=== PATIENT | female | born 1980 | race Caucasian/White ===

== ENCOUNTER 2024-07-13 11:04 | Emergency (ER) | payer OTHER, SELFPAY ==
[2024-07-13 11:10] VITALS: BP 128/86; PULSE 108; TEMP 37.3; O2SAT 100; BMI 21.2
[2024-07-13 11:23] VITALS: RESP 16
--- NOTE | 2024-07-13 11:33 | ED_ITS ---
HPI - General Adult General Time Seen by Provider: 11:34 Date Seen: 07/13/24 Chief complaint: Unspecified Complaint, Adult Stated complaint: Shoulder and hip pain, Dx w/ pnemonia Time Seen by Provider: 07/13/24 11:18 Source: patient and RN notes reviewed Mode of arrival: ambulatory Limitations: no limitations History of Present Illness HPI narrative: This 44-year-old female is coming in with significant hip pains, some shoulder pains in the setting of pneumonia. She was diagnosed by chest x-ray with a left sided pneumonia in [facility] last week. She was coughing and having fevers for about a week prior to that. She picked up her medicines on , completed a 5 day course of prednisone yesterday, is on Augmentin for the pneumonia. She is still coughing. Her temps have been in the 99 range. She started having significant bilateral hip pain yesterday, tried a warm bath. Nothing was helping, hurt to even lift or move her legs, hurt to lay on the hips. Last night she was having bilateral shoulder pain, similar symptoms, movement hurt, lying on the bed hurt the joints. Her shoulders are not as bad as her hips today. She had a leftover Tylenol No. 3 from LASIK eye surgery last summer. She states she was only able to sleep while that took affect, as soon as it wore off she was up again. She is otherwise healthy, not on any immune modulating medications. She is not aware of any concerning family history. She had no travel, no known ill contacts. She states that there is no chance for . Related Data Home Medications ?Medication ?Instructions ?Recorded ?Confirmed dexmethylphenidate 20 mg 20 mg PO DAILY 07/13/24 07/13/24 capsule,extended release -41 eletriptan 40 mg tablet 40 mg PO BID PRN migraine 07/13/24 07/13/24 norethindrone (contraceptive) 0.35 mg PO 07/13/24 mg tablet topiramate 100 mg tablet 100 mg PO QPM 07/13/24 07/13/24 Previous Rx's ?Medication ?Instructions ?Recorded azithromycin 250 mg tablet See Rx Instructions PO .COMPLEX #6 07/13/24 tabs ketorolac 10 mg tablet 10 mg PO Q6H PRN pain #20 tabs 07/13/24 oxycodone 5 mg tablet 5 mg PO QHS PRN pain #7 tabs 07/13/24 Allergies Allergy/AdvReac Type Severity Reaction Status Date / Time No Known Drug Allergies Allergy Verified 07/13/24 11:14 Review of Systems Status of ROS: Reports: 6 or more systems reviewed and unremarkable except as noted in History and below PFSH PFSH Social History Smoking Status: Never smoker How often do you have a drink containing alcohol: monthly or less How often do you have six or more drinks on one occasion: Never AUDIT-C Alcohol total score: 1 Non-prescribed substance use: denies use Exam Const: Vital Signs, click to edit/add: Vital Signs - 24 hr 07/13/24 11:10 07/13/24 11:23 07/13/24 12:15 Temperature 99.2 F Pulse Rate [Pulse Oximeter] 108 H Respiratory Rate 16 Blood Pressure [Ri ght Upper Arm] 128/86 Pulse Oximetry 100 99 Oxygen Delivery Me thod Room Air 07/13/24 12:25 07/13/24 12:25 07/13/24 13:00 Temperature 98.5 F Pulse Rate [Pulse Oximeter] 91 Respiratory Rate Blood Pressure [Ri ght Upper Arm] 122/71 Pulse Oximetry 97 Oxygen Delivery Me thod Room Air This 44-year-old female is alert, interactive, no apparent distress but looks like she does not feel well. She is sitting up on the edge of the bed, well capped. Pupils equal round reactive, sclerae clear, extraocular muscles intact. Symmetrical facial function. Neck supple, no adenopathy, no thyromegaly masses or nodules. Lungs on auscultation have crackles of the left lower lung field to left mid lung field posteriorly. There is no wheezing anywhere, breath sounds otherwise clear elsewhere. She has no tachypnea. CV regular rate and rhythm, no murmur. Abdomen is soft, nontender, nondistended, no organomegaly. Her joints are fully mobile, no limitations but she does state there is pain with range of motion of her hips, no extensive pain with range of motion of her shoulders at this time. Skin visualized without rash. Neurovascular is intact. Documenting provider has reviewed patient's vital signs: yes Course Course ED Course: Reviewed medications side effects with patient. Prednisone can sometimes give patient's myopathy but I doubt that for her in this situation, does not seem to be consistent. Augmentin does not typically give this type of reaction. It could be complication of her pneumonia. She is experiencing arthralgias, need to consider bacteria differential with her pneumonia. We are going to proceed with two view chest x-ray, may need to consider CT imaging of her pneumonia. Will get a full complement of labs. We will see if she responds to Toradol, did drive herself here. Will also look at a triple viral swab for this patient. Reevaluation(s) Time of Reevaluation #1: 13:25 Reevaluation #1: Have reviewed with patient that her chest x-ray is still confirming a left-sided infiltrate. It certainly does not look extensive to me, do not think we need to proceed with any CT imaging. She notes that the Toradol really did help her hip pain. She actually took her last antibiotic dose this morning. She believes she started the Augmentin last Thursday night, completed the last dose this morning, would have completed a 7 day course. Reviewed with her serum sickness like illness from the amoxicillin, time course fits that she is developed the arthralgias within the 1st week of antibiotic use. She is testing negative for strep pneumoniae antigen in the urine. She has been treated with antibiotics. Strep pneumonia a is 1 of the bacterial pathogens that can cause a serum sickness like illness as well. I think this less likely at this time. She is still coughing, low-grade fevers still could be from incompletely treated pneumonia. Would recommend that she take a Z-Abiel, can send her with oral Toradol, some oxycodone to help her sleep. We discussed that the serum sickness like illness will likely take about 1-2 weeks to resolve. We went over signs and symptoms for return. Vital Signs Vital signs: Initial Vital Signs Temperature 99.2 F 07/13/24 11:10 Temperature Source Temporal Artery Scan 07/13/24 11:10 Pulse Rate 108 H 07/13/24 11:10 Blood Pressure 128/86 07/13/24 11:10 Blood Pressure Mean 100 07/13/24 11:10 Blood Pressure Position Sitting 07/13/24 11:10 Pulse Oximetry 100 07/13/24 11:10 Oxygen Delivery Method Room Air 07/13/24 11:10 Vital Signs Temperature 99.2 F 07/13/24 11:10 Pulse Rate 108 H 07/13/24 11:10 Blood Pressure 128/86 07/13/24 11:10 Pulse Oximetry 100 07/13/24 11:10 Oxygen Delivery Method Room Air 07/13/24 11:10 Temperature 98.5 F 07/13/24 12:25 Pulse Rate 91 07/13/24 12:25 Respiratory Rate 16 07/13/24 11:23 Blood Pressure 122/71 07/13/24 13:00 Pulse Oximetry 97 07/13/24 12:25 Oxygen Delivery Method Room Air 07/13/24 12:25 Medications Administered Medications: Discontinued Medications Generic Name Dose Route Start Last Admin Trade Name Basim PRN Reason Stop Dose Admin Ketorolac Tromethamine 15 mg 07/13/24 11:47 07/13/24 12:15 Ketorolac 15 Mg/Ml Inj IVP 07/13/24 11:48 15 mg ONCE ONE Administration Medical Decision Making Lab Data Lab results reviewed: Yes I reviewed the patient's lab results Labs: Lab Results 07/13/24 07/13/24 07/13/24 Range/Units 11:52 11:59 12:10 WBC 12.06 H (4.50-11.00) K/uL RBC 5.20 (4.00-5.20) m/uL Hgb 14.4 (12.0-16.0) gm/dL Hct 43.7 (33.0-51.0) % MCV 84 (80-100) fL MCH 28 (26-34) pg MCHC 33 (32-36) gm/dL RDW Coeff of Dawit 12.7 (11.5-15.5) % Plt Count 373 (140-440) K/uL Neut % (Auto) 78.1 H (42.0-72.0) % Lymph % (Auto) 11.9 L (20-44) % Catron % (Auto) 7.4 (0.0-11.0) % Eos % (Auto) 1.8 (0.0-7.0) % Baso % (Auto) 0.1 (0.0-3.0) % Neut # (Auto) 9.40 H (1.7-7.0) K/uL Lymph # (Auto) 1.40 (0.90-2.90) K/uL Catron # (Auto) 0.90 (0.00-0.90) K/UL Eos # (Auto) 0.20 (0.00-0.50) K/uL Baso # (Auto) 0.00 (0.00-0.30) K/uL Abs Immat Gran (auto) 0.10 (0.00-0.30) K/uL Imm/Tot Granulo (auto) 0.7 % ESR 12 (2-20) mm/hr VBG pH 7.348 (7.32-7.43) VBG pCO2 46 (40-50) mmHG VBG pO2 < 30.1 (25-47) mmHG VBG HCO3 25 (21-28) mmol/L Sodium 138 (135-149) mmol/L Potassium 3.8 (3.6-5.1) mmol/L Chloride 103 (96-114) mmol/L Carbon Dioxide 25 (20-32) mmol/L Anion Gap 10 (7-15) mEq/L BUN 11 (5-24) mg/dL Creatinine 0.9 (0.5-1.5) mg/dL Estimated Creat Clear 96.09 Estimated GFR 80 ml/min Glucose 116 H (60-115) mg/dL Lactate 0.9 (0.5-1.9) mmol/L Calcium 9.3 (8.4-10.6) mg/dL Total Bilirubin 0.6 (0.1-1.5) mg/dL AST 20 (12-35) U/L ALT 22 (4-35) U/L Alkaline Phosphatase 83 (40-150) U/L Total Creatine Kinase 28 L (41-117) U/L Troponin I < 0.01 L (0.01-0.04) ng/mL C-Reactive Protein 0.7 (0.5-1.0) mg/dL Total Protein 7.6 (6.0-8.3) g/dL Albumin 4.4 (3.3-5.0) g/dL Procalcitonin 0.05 (<0.50) ng/mL Urine L. pneumophilia Ag L. pneumo Negative (Negative) Urine Strep pneumoniae Ag S. pneumo Negative (Negative) SARS-CoV-2 (PCR) Negative SARS-CoV-2 (Negative) Influenza Type A (PCR) Negative PCR FLU A (Negative) Influenza Type B (PCR) Negative PCR FLU B (Negative) RSV (PCR) Negative PCR RSV (Negative) Lab Acknowledgement Test Added Imaging Data Chest x-ray: Attestation: I have reviewed the pertinent imaging results. My impression: Left lower infiltrate, wait radiology over-read. Radiologist's impression: Patient: KILEY STOKES Facility:?[facility] RIS Patient ID:?[id number] Site Patient ID:?[id number]. Site :?[id number] Study:?XRay-Chest 2 VIEW-07/13/2024 12:38:04 PM Ordering Physician:?Taryn Pabon Final Report: INDICATION: Recent pneumonia, still coughing. COMPARISON: July 06, 2020 TECHNIQUE: Single view study FINDINGS: TUBES AND LINES: None. HEART AND MEDIASTINUM: The heart size is normal. The mediastinal contour appears normal for patient age. LUNGS AND PLEURAL SPACES: Persistent consolidation in the left lower lobes similar to the prior study given technical differences.The pleural spaces are unremarkable.The findings are consistent with pneumonia. OSSEOUS STRUCTURES: Age-appropriate appearance. No acute focal finding. IMPRESSION: Persistent left-sided consolidation most consistent with pneumonia. Dictated by Silvino Matias MD @ 07/13/2024 12:57:41 PM (Electronic Signature) ECG Data Attestation: I personally reviewed and interpreted this ECG as follows: (Normal sinus rhythm, 82 beats per minute. Incomplete right bundle branch block. Do not appreciate ischemia or infarct.) Prior ECG tracings: not available for review Discharge Plan Discharge Clinical Impression: Arthralgia Qualifiers: Joint pain location: other joint Qualified Code(s): M25.59 - Pain in other specified joint Community acquired pneumonia Qualifiers: Laterality: left Lung location: lower lobe of lung Qualified Code(s): J18.9 - Pneumonia, unspecified organism Patient Disposition: Home, Self-Care Condition: Stable Instructions: Community Acquired Pneumonia (ED) Additional Instructions: You should consider avoiding amoxicillin in the future as I do suspect this as the causative etiology of your joint pains. There is a condition called serum sickness like illness which can come from antibiotics, amoxicillin is a common 1, can also come from infections. I cannot tell you exactly which is causing her symptoms. Will have you take Toradol per prescription baseline for pain. Did write for some oxycodone to help you at bedtime for sleep. Your symptoms from pneumonia should also be treated with a Z-Abiel to cover for atypical agents. Can also use Tylenol for pain management, 1000 mg 3 times a day. If you are not improving over the next 1-2 weeks, or worsening at any point, have further concerns, please seek re-evaluation. Activity Level: Activity as Tolerated Discharge Diet: Regular Prescriptions: New azithromycin 250 mg tablet See Rx Instructions .ROUTE .COMPLEX Qty: 6 0RF Rx Instructions: For 250 mg dose pack: take 500 mg today (day 1), then 250 mg for 4 days (days 2-5) ketorolac 10 mg tablet 10 mg PO Q6H PRN (Reason: pain) Qty: 20 0RF Rx Instructions: maximum total duration of 5 days from all oral, intranasal, or parenteral formulations oxycodone 5 mg tablet 5 mg PO QHS PRN (Reason: pain) Qty: 7 0RF No Action norethindrone (contraceptive) 0.35 mg tablet PO topiramate 100 mg tablet 100 mg PO QPM eletriptan 40 mg tablet 40 mg PO BID PRN (Reason: migraine) dexmethylphenidate 20 mg capsule,ER biphasic 50-50 20 mg PO DAILY Follow Up/Referrals: Delaney Shabazz MD [Primary Care Provider] - Stand Alone Forms: [employer] Info Instructions
--- NOTE | 2024-07-13 11:45 | CRLHL7_ITS ---
For Patients: As a result of the Cures Act, medical imaging exams and procedure reports are released immediately into your electronic medical record. You may view this report before your referring provider. If you have questions, please contact your health care provider. INDICATION: Recent pneumonia, still coughing. COMPARISON: July 06, 2020 TECHNIQUE: Single view study FINDINGS: TUBES AND LINES: None. HEART AND MEDIASTINUM: The heart size is normal. The mediastinal contour appears normal for patient age. LUNGS AND PLEURAL SPACES: Persistent consolidation in the left lower lobes similar to the prior study given technical differences.The pleural spaces are unremarkable.The findings are consistent with pneumonia. OSSEOUS STRUCTURES: Age-appropriate appearance. No acute focal finding. IMPRESSION: Persistent left-sided consolidation most consistent with pneumonia. Dictated by Silvino Matias MD @ 07/13/2024 12:57:41 PM (Electronically Signed)
[2024-07-13 12:15] VITALS: O2SAT 99
[2024-07-13] MEDS: KETOROLAC 15 MG/ML inj IVP (12:15)
[2024-07-13 12:16] LABS: Legionella pneumo Ag Urine L. pneumo Negative (Negative); S pneumo Ag Urine S. pneumo Negative (Negative)
[2024-07-13 12:18] LABS: Basophils Percent Auto 0.1 % (0.0-3.0); Eosinophils Percent Auto 1.8 % (0.0-7.0); HCO3 VBG 25 mmol/L (21-28); Hematocrit 43.7 % (33.0-51.0); Hemoglobin* 14.4 gm/dL (12.0-16.0); Immature Granulocytes Pct Auto 0.7 %; Lactate* 0.9 mmol/L (0.5-1.9); Lymphocytes Percent Auto 11.9 % (20-44); Mean Corpuscular HGB Conc 33 gm/dL (32-36); Mean Corpuscular Hemoglobin 28 pg (26-34); Mean Corpuscular Volume 84 fL (80-100); Monocytes Percent Auto 7.4 % (0.0-11.0); Neutrophils Percent Auto 78.1 % (42.0-72.0); PCO2 VBG 46 mmHG (40-50); PO2 VBG < 30.1 mmHG (25-47); Platelet Count* 373 K/uL (140-440); RDW Coefficient of Variation % 12.7 % (11.5-15.5); White Blood Count* 12.06 K/uL (4.50-11.00); pH VBG 7.348 (7.32-7.43)
[2024-07-13 12:22] LABS: Slide Review Reflex No
[2024-07-13 12:25] VITALS: PULSE 91; TEMP 36.9; O2SAT 97
[2024-07-13 12:33] LABS: PCR FLU A Negative PCR FLU A (Negative); PCR FLU B Negative PCR FLU B (Negative); PCR RSV Negative PCR RSV (Negative); SARS PCR* Negative SARS-CoV-2 (Negative)
[2024-07-13 12:34] LABS: Albumin* 4.4 g/dL (3.3-5.0); Chloride* 103 mmol/L (96-114)
[2024-07-13 12:35] LABS: Potassium* 3.8 mmol/L (3.6-5.1); Sodium* 138 mmol/L (135-149)
[2024-07-13 12:37] LABS: Creatinine* 0.9 mg/dL (0.5-1.5); Est. Creatinine Clearance* 96.09; Estimated Glomerular Filt Rate 80 ml/min
[2024-07-13 12:38] LABS: Alanine Aminotransferase* 22 U/L (4-35); Alkaline Phosphatase* 83 U/L (40-150); Anion Gap 10 mEq/L (7-15); Aspartate Amino Transferase* 20 U/L (12-35); Bilirubin Total* 0.6 mg/dL (0.1-1.5); Blood Urea Nitrogen* 11 mg/dL (5-24); Calcium* 9.3 mg/dL (8.4-10.6); Carbon Dioxide* 25 mmol/L (20-32); Creatine Kinase* 28 U/L (41-117); Glucose* 116 mg/dL (60-115); Total Protein* 7.6 g/dL (6.0-8.3)
[2024-07-13 12:40] LABS: C Reactive Protein* 0.7 mg/dL (0.5-1.0)
[2024-07-13 12:54] LABS: Procalcitonin* 0.05 ng/mL (<0.50); Troponin I* < 0.01 ng/mL (0.01-0.04)
[2024-07-13 13:00] VITALS: BP 122/71
[2024-07-13 13:03] LABS: Erythrocyte SedimentationRate* 12 mm/hr (2-20)
== END 2024-07-13 13:41 | disposition home or self-care (01) ==
PROVIDERS: Emergency Provider Family Medicine; PCP Family Medicine
DX: J18.9 Pneumonia, unspecified organism (principal); M25.552 Pain in left hip; M25.551 Pain in right hip
CPT/HCPCS: 36415; 71046; 80053; 82550; 82803; 83605; 84145; 84484; 85025; 85651; 86140; 87449; 87631; 87899; 93005; 94761; 96374; 99284; 99285; J1885